=== PATIENT | female | born 1955 | race Two or more races ===

== ENCOUNTER 2016-04-14 13:40 | Emergency (ER) | payer MEDICARE, OTHER ==
[2016-04-14 13:51] VITALS: TEMP 98.8; BMI 29.3
[2016-04-14] MEDS ORDERED: MAGNESIUM SULF 50% (8.12 MEQ/2 ML-1 GM VIAL) IVPB ONE (14:05)
[2016-04-14] MEDS ORDERED: ACETAMINOPHEN 1000 MG/100 ML VIAL (NON FORMULARY) IVPB ONE (14:05)
[2016-04-14] MEDS ORDERED: METOCLOPRAMIDE HCL INJECTION 10 MG/2 ML VIAL IVPB ONE (14:05)
[2016-04-14] MEDS ORDERED: ACETAMINOPHEN INJECTION 100 ML IVPB ONE (14:20)
[2016-04-14 14:23] LABS: BASOPHIL 0.6 % (0-2.0); EOSINOPHIL 1.2 % (0-4.5); MCH 29.1 pg (25.7-33.7); MCHC 33.4 g/dl (32.0-36.0); MEAN CELL VOLUME 87.4 fl (80-96); MEAN PLT VOLUME 7.7 fl (7.5-11.1); NEUTROPHILS 61.2 % (42.8-82.8); PLATELET COUNT 294 K/MM3 (134-434); RDW 13.5 % (11.6-15.6); WHITE BLOOD COUNT 5.4 K/mm3 (4.0-10.0)
[2016-04-14 14:44] LABS: ALBUMIN 4.5 g/dl (3.5-5.0); ALK PHOS 81 U/L (32-92); ANION GAP 9 (8-16); BILIRUBIN,TOTAL 0.5 mg/dl (0.2-1.0); CALCIUM 10.1 mg/dl (8.4-10.2); CO2 31 mmol/L (22-28); CREATININE 0.7 mg/dl (0.6-1.3); GLUCOSE,RANDOM 133 mg/dl (74-106); SGOT/AST 27 U/L (10-42); SGPT/ALT 18 U/L (10-40); TOT PROT 7.4 g/dl (6.4-8.3)
--- NOTE | 2016-04-14 15:40 | PDOC ---
History of Present Illness - General Chief Complaint: CVA/TIA Stated Complaint: HEADACHE, NECK, RT SHOULDER PAIN, RT FACE TINGLING Time Seen by Provider: 04/14/16 13:44 History Source: Patient Exam Limitations: No Limitations - History of Present Illness Initial Comments: 04/14/16 14:41 This is a 60 yo F with a history of HTN, chronic headaches (since head trauma) who presents to the ER with a complaint of persistent right sided headache, facial numbness. Patient states she noted a gradual onset of right sided headache 2 weeks ago which she describes as "burning" She feels like something is "pouring" in her brain States pain is 9/10 Symptoms improve when she takes Topomax but then returns She was seen by her pmd last week to asked her to come in to the ER Pt did not come at that time PT states she has note tingling of her tongue and numbness of the lateral side of her tongue No speech difficulties No visual changes No weakness in the extremities No nausea or vomiting Pt notes bilateral tinnitus at all times for several days She has also noted right forehead swelling No trauma, No falls In addition to the parietal headache, pt has right neck pain which feels like tightness Pt has not seen a Neurologist for her history of intense headaches She is followed by her PMD PMH: HTN, Chronic headache PSH: myomectomy Meds: Topomax, Mobic, Lisinopril-HCTZ ALL: NKDA Social: Denies alcohol, drug, cigarettes GENERAL/CONSTITUTIONAL: No: fever, chills, weakness, loss of appetite. HEAD, EYES, EARS, NOSE AND THROAT: No: change in vision, ear pain, discharge, sore throat, throat swelling. CARDIOVASCULAR: No: chest pain, lightheadedness, palpitations, syncope RESPIRATORY: No: cough, shortness of breath, wheezing, hemoptysis, stridor. GASTROINTESTINAL: No: nausea, vomiting, diarrhea, abdominal cramping, rectal bleeding, constipation. GENITOURINARY: No: dysuria, hematuria, frequency, urgency, flank pain. MUSCULOSKELETAL: No: back pain, neck pain, joint pain, muscle swelling or pain SKIN: No: lesions, pallor, rash or easy bruising. NEUROLOGIC: Yes: headache, paresthesias right face No: vertigo,weakness ENDOCRINE: No: unexplained weight gain or loss HEMATOLOGIC/LYMPHATIC: No: anemia, easy bleeding, swelling nodes. GENERAL: The patient is in no acute distress. HEAD: Normal with no signs of trauma. EYES: PERRLA, EOMI, sclera anicteric, conjunctiva clear. ENT: Ears normal, nares patent, oropharynx clear without exudates. Moist mucous membranes. NECK: Normal range of motion, supple without lymphadenopathy, JVD, or masses. LUNGS: Breath sounds equal, clear to auscultation bilaterally. No wheezes, and no crackles. HEART: Regular rate and rhythm, normal S1 and S2 without murmur, rub or gallop. ABDOMEN: Soft, nontender, normoactive bowel sounds. No guarding, no rebound. No masses palpable. EXTREMITIES: Normal range of motion, no edema. No clubbing or cyanosis. No erythema, or tenderness. NEUROLOGICAL: Cranial nerves II through XII grossly intact. Normal speech. Slowed rapid alternating movements Able to do finger to nose but states she gets double vision sensation intact motor strength 5/5 all extremities Pt shakes? when exerting herself Rhomberg negative MUSCULOSKELETAL: Back non-tender to palpation, no CVA tenderness SKIN: Warm, Dry, normal turgor, no rashes or lesions noted. Past History - Past Medical History Allergies/Adverse Reactions: Allergies Allergy/AdvReac Type Severity Reaction Status Date / Time No Known Allergies Allergy Verified 05/15/14 10:21 Home Medications: Ambulatory Orders Lisinopril/Hydrochlorothiazide [Lisinopril-Hctz 10-12.5 mg Tab] 1 each PO DAILY 05/15/14 Acetaminophen/Caffeine/Butalb [Fioricet -] 1 tab PO TID PRN #9 tablet MDD 3 05/26 Meloxicam [Mobic] 7.5 mg PO ASDIR 04/14/16 Methocarbamol [Robaxin -] 500 mg PO TID PRN #12 tablet 04/14/16 Topiramate [Topamax] 50 mg PO ASDIR 04/14/16 HTN: Yes Other medical history: HEAD INJURY FROM FALL 2013, HEADACHE, RT KNEE PAIN - Psycho/Social/Smoking Cessation Hx Anxiety: No Suicidal Ideation: No Smoking History: Never smoked Have you smoked in the past 12 months: No Information on smoking cessation initiated: No Hx Alcohol Use: No *Physical Exam - Vital Signs Last Vital Signs Temp Pulse Resp BP Pulse Ox 98.8 F 91 H 18 171/65 98 04/14/16 13:40 04/14/16 13:40 04/14/16 13:40 04/14/16 13:40 04/14/16 13:40 ED Treatment Course - LABORATORY CBC & Chemistry Diagram: 04/14/16 14:15 04/14/16 14:18 - ADDITIONAL ORDERS Additional order review: 04/14/16 14:15 RBC 4.71 MCV 87.4 MCHC 33.4 RDW 13.5 MPV 7.7 Neutrophils % 61.2 Lymphocytes % 30.2 Monocytes % 6.8 Eosinophils % 1.2 Basophils % 0.6 - RADIOLOGY Radiology Studies Ordered: Category Date Time Status HEAD CT WITHOUT CONTRAST [CT] Stat CT Scan 04/14/16 14:05 Completed - Medications Given in the ED: ED Medications Discontinued Medications Generic Name Dose Route Start Last Admin Trade Name Freq PRN Reason Stop Dose Admin Acetaminophen 1,000 mg 04/14/16 14:05 04/14/16 14:30 Ofirmev Injection - IVPB 04/14/16 14:06 1,000 mg ONCE ONE Administration Medical Decision Making - Medical Decision Making 04/14/16 15:40 Will do basic labs Head CT Will give medications for headache Will re assess Laboratory Tests 04/14/16 04/14/16 14:15 14:18 WBC 5.4 Hgb 13.7 Hct 41.1 Plt Count 294 Neutrophils % 61.2 Lymphocytes % 30.2 Sodium 137 Potassium 3.7 Chloride 97 L Carbon Dioxide 31 H BUN 15 Creatinine 0.7 Random Glucose 133 H upon re assessment Pt states she feels better She has not had tenderness over the carotid No anisocoria or ptosis Will discharge with follow up in Dr Ann's office and Neurology 04/14/16 16:[address] Moore No clinical reason to admit Pt will follow up as an outpatient Case reviewed with Neuro Follow up as an outpatient next available I discussed the physical exam findings, ancillary test results and final diagnoses with the patient. I answered all of the patient's questions. The patient was satisfied with the care received and felt comfortable with the discharge plan and treatment plan. The patient will call their primary care physician within 24 hours to arrange follow-up and will return to the Emergency Department with any new, persistent or worsening symptoms. *DC/Admit/Observation/Transfer Diagnosis at time of Disposition: Headache - Discharge Dispostion Disposition: HOME Condition at time of disposition: Stable Admit: No - Prescriptions Prescriptions: Acetaminophen/Caffeine/Butalb [Fioricet -] 1 tab PO TID PRN #9 tablet MDD 3 PRN Reason: Headache Methocarbamol [Robaxin -] 500 mg PO TID PRN #12 tablet PRN Reason: Muscle Spasms - Referrals Referrals: Jermaine Ann MD [Primary Care Provider] - Delaney Villalobos MD [Staff Physician] - - Patient Instructions Printed Discharge Instructions: DI for Headache Additional Instructions: Ms. Horan Thank you for coming to the ER today I have contacted your primary care physician You will need to return to the office to see him I have contacted the Neurologist, please make an appointment [facility] for next week Please continue taking the medications given to you by Dr. Ann for headache Return to the ER for persistent or intractable symptoms
[2016-04-14 17:09] VITALS: BP 137/70; PULSE 79
== END 2016-04-14 17:19 | disposition home or self-care (01) ==
LOC: FER 13:40
PROC: 3E033NZ Introduction of Analgesics, Hypnotics, Sedatives into Peripheral Vein, Percutaneous Approach (ICD-10-PCS; principal; 2016-04-14)
PROC: 3E033GC Introduction of Other Therapeutic Substance into Peripheral Vein, Percutaneous Approach (ICD-10-PCS; 2016-04-14)
DX: R51 Headache (principal); I10 Essential (primary) hypertension
CPT/HCPCS: 36415; 70450-TC; 80053; 85025; 96374; 96375; 99285-25

== ENCOUNTER 2016-11-27 15:15 | Emergency (ER) | payer MEDICARE, OTHER ==
--- NOTE | 2016-11-27 15:21 | PDOC ---
History of Present Illness <Marnie De La Cruz - Last Filed: 11/27/16 16:35> - General History Source: Patient Exam Limitations: No Limitations - History of Present Illness Initial Comments: 11/27/16 16:22 Patient is a 61 year old female with a significant past medical history of Diabetes, High Cholesterol, HTN, chronic headaches (since head trauma) who presents to the ED with complaints of diffuse abdominal pain beginning 2 weeks ago. Patient reports abdominal pain began two weeks prior suddenly. She reports abdominal pain was intermittent for the first 2 weeks but has become constant. Patient reports abdominal pain radiates to legs and back bilaterally. She reports rectal pain secondary to abdominal pain. Patient states she has a hemorrhoid, and has felt it. She reports the pain to feel like a burning pain that radiates from abdomen to back and legs bilaterally. She has reported episodes of urinary frequency. Patient reports headache secondary to abdominal pain. Denies hematuria, dysuria. Denies hematochezia, diarrhea, constipation. Denies chest pain, SOB. Denies nausea, fever. Allergies: None Social history: Surgical history: Ovarian fibroid surgery. PMD: Dr. mercado <Jaxon Justin - Last Filed: 11/27/16 18:35> - General Chief Complaint: Pain Stated Complaint: ABD, RECTAL PAIN, URINARY SX Time Seen by Provider: 11/27/16 15:20 Past History - Past Medical History HTN: Yes - Suicide/Smoking/Psychosocial Hx Smoking History: Never smoked Have you smoked in the past 12 months: No Hx Alcohol Use: No <Marnie De La Cruz - Last Filed: 11/27/16 16:35> <Jaxon Justin - Last Filed: 11/27/16 18:35> - Past Medical History Allergies/Adverse Reactions: Allergies Allergy/AdvReac Type Severity Reaction Status Date / Time No Known Allergies Allergy Verified 11/27/16 15:17 Home Medications: Ambulatory Orders Atorvastatin Ca [Lipitor] 10 mg PO HS 11/27/16 Glipizide 5 mg PO DAILY 11/27/16 Lisinopril mg PO DAILY 11/27/16 Meloxicam mg PO ASDIR 11/27/16 Review of Systems - Review of Systems Able to Perform ROS?: Yes Comments:: 11/27/16 16:23 GENERAL/CONSTITUTIONAL: No fever or chills. No weakness. HEAD, EYES, EARS, NOSE AND THROAT: No change in vision. No ear pain or discharge. No sore throat. GASTROINTESTINAL: No nausea, vomiting, diarrhea or constipation. GENITOURINARY: No dysuria, frequency, or change in urination. CARDIOVASCULAR: No chest pain or shortness of breath. RESPIRATORY: No cough, wheezing, or hemoptysis. MUSCULOSKELETAL: + Abdominal pain. + Back pain. + Rectal pain. No joint or muscle swelling. No neck. SKIN: No rash NEUROLOGIC: No headache, vertigo, loss of consciousness, or change in strength/ sensation. ENDOCRINE: No increased thirst. No abnormal weight change. HEMATOLOGIC/LYMPHATIC: No anemia, easy bleeding, or history of blood clots. ALLERGIC/IMMUNOLOGIC: No hives or skin allergy. All Other Systems: Reviewed and Negative <Jaxon Justin - Last Filed: 11/27/16 18:35> *Physical Exam - Vital Signs Last Vital Signs Temp Pulse Resp BP Pulse Ox 98.5 F 76 18 136/75 99 11/27/16 15:15 11/27/16 15:15 11/27/16 15:15 11/27/16 15:15 11/27/16 15:15 - Physical Exam Comments: 11/27/16 16:24 GENERAL: Awake, alert, and fully oriented, in no acute distress HEAD: No signs of trauma EYES: PERRLA, EOMI, sclera anicteric, conjunctiva clear ENT: Auricles normal inspection, hearing grossly normal, nares patent, oropharynx clear without exudates. Moist mucosa NECK: Normal ROM, supple, no lymphadenopathy, JVD, or masses LUNGS: Breath sounds equal, clear to auscultation bilaterally. No wheezes, and no crackles HEART: Regular rate and rhythm, normal S1 and S2, no murmurs, rubs or gallops ABDOMEN: Soft, nontender, normoactive bowel sounds. No guarding, no rebound. No masses RECTAL: + Small External non thrombosed hemorrhoid at 2 oclock position. EXTREMITIES: Normal range of motion, no edema. No clubbing or cyanosis. No cords, erythema, or tenderness NEUROLOGICAL: Cranial nerves II through XII grossly intact. Normal speech, normal gait SKIN: Warm, Dry, normal turgor, no rashes or lesions noted. 11/27/16 18:35 <Jaxon Justin - Last Filed: 11/27/16 18:35> ED Treatment Course - ADDITIONAL ORDERS Additional order review: Laboratory Results 11/27/16 16:05 Urine Color Yellow Urine Appearance Clear Urine pH 6.0 Ur Specific [place] 1.020 Urine Protein Negative Urine Glucose (UA) Negative Urine Ketones Negative Urine Blood Negative Urine Nitrite Negative Urine Bilirubin Negative Urine Urobilinogen 0.2 <Jaxon Justin - Last Filed: 11/27/16 18:35> *DC/Admit/Observation/Transfer - Discharge Dispostion Admit: No <Marnie De La Cruz - Last Filed: 11/27/16 16:35> - Attestations Scribe Attestion: 11/27/16 16:25 Documentation prepared by Jaxon Justin, acting as medical voucher clerk for Marnie De La Cruz MD. <Jaxon Justin - Last Filed: 11/27/16 18:35> Diagnosis at time of Disposition: Hemorrhoid Qualifiers: Hemorrhoid type: unspecified Qualified Code(s): K64.9 - Unspecified hemorrhoids - Discharge Dispostion Disposition: HOME Condition at time of disposition: Stable - Patient Instructions Printed Discharge Instructions: DI for Hemorrhoids Additional Instructions: USE PREPARATION H DIRECTED ON THE PACKAGE. TUCKS PADS (WITCH FABIOLA) FOR IRRITATION. SITZ BATH WITH EPSOM SALTS- SOAK TO HELP MAKE THE HEMORRHOID SMALLER.
[2016-11-27 15:36] VITALS: BP 136/75; PULSE 76; TEMP 98.5; BMI 29.0
[2016-11-27 16:17] LABS: URINE APPEARANCE Clear; URINE BILIRUBIN Negative (NEGATIVE); URINE BLOOD Negative (NEGATIVE); URINE GLUCOSE (UA) Negative (NEGATIVE); URINE KETONE Negative (NEGATIVE); URINE NITRITE Negative (NEGATIVE); URINE PROTEIN Negative (NEGATIVE); URINE UROBILINOGEN 0.2 (0.2-1.0)
[2016-11-27 16:20] LABS: URINE COLOR YELLOW
[2016-11-29 09:07] LABS: URINE LEUK ESTERASE NEGATIVE (NEGATIVE)
== END 2016-11-27 16:45 | disposition home or self-care (01) ==
LOC: FER 15:15
DX: K64.9 Unspecified hemorrhoids (principal)
CPT/HCPCS: 81003; 99283-25

== ENCOUNTER 2019-09-30 06:10 | Day surgery (SDC) | payer OTHER ==
[2019-09-26 17:39] VITALS: BMI 29.0
[2019-09-30 06:37] LABS: BASO % 0.4 % (0-2.0); EOS % 0.9 % (0-4.5); HEMATOCRIT 39.7 % (32.4-45.2); HEMOGLOBIN 13.2 GM/dL (10.7-15.3); LYMPH % 35.3 % (8-40); MCH 29.7 pg (25.7-33.7); MCHC 33.2 g/dl (32.0-36.0); MEAN CELL VOLUME 89.4 fl (80-96); MEAN PLT VOLUME 8.1 fl (7.5-11.1); MONO % 9.1 % (3.8-10.2); NEUT % 54.3 % (42.8-82.8); PLATELET COUNT 250 K/MM3 (134-434); RBC 4.45 M/mm3 (3.60-5.2); RDW 14.7 % (11.6-15.6); WHITE BLOOD COUNT 6.6 K/mm3 (4.0-10.0)
[2019-09-30 07:08] LABS: ALBUMIN 4.2 g/dl (3.4-5.0); BILIRUBIN,TOTAL 0.3 mg/dL (0.2-1); BLOOD UREA NITROGEN 22.9 mg/dL (7-18); CALCIUM 9.1 mg/dL (8.5-10.1); CREATININE 0.7 mg/dL (0.55-1.3); POTASSIUM 3.7 mmol/L (3.5-5.1); TOT PROT 7.6 g/dl (6.4-8.2)
[2019-09-30] MEDS ORDERED: SUCCINYLCHOLINE CHLORIDE 200 MG/10 ML SYRINGE ONE (07:08)
[2019-09-30] MEDS ORDERED: MIDAZOLAM HCL 2 MG/2 ML SINGLE DOSE VIAL ONE (07:08)
[2019-09-30] MEDS ORDERED: PROPOFOL 20 ML ONE ×2 (07:08)
[2019-09-30] MEDS ORDERED: ONDANSETRON 4 MG/2 ML VIAL IVPUSH PRN (07:33)
--- NOTE | 2019-09-30 07:41 | HP ---
Admitting History and Physical - Admission Chief Complaint: Vaginal bleeding History of Present Illness: 64 yo Para 3, with prior uterine embolization, c/o vaginal bleeding. She's pre op for D&C Hysteroscopy. History Source: Patient Limitations to Obtaining History: No Limitations - Past Medical History ...: No ...Para: 2 - Past Surgical History Additional Past Surgical History: Uterine embolization - Smoking History Smoking history: Never smoked Have you smoked in the past 12 months: No - Alcohol/Substance Use Hx Alcohol Use: No History of Substance Use: reports: None - Social History History of Recent Travel: No Home Medications - Allergies Allergies/Adverse Reactions: Allergies Allergy/AdvReac Type Severity Reaction Status Date / Time No Known Allergies Allergy Verified 09/30/19 06:50 - Home Medications Home Medications: Ambulatory Orders Atorvastatin Ca [Lipitor] 10 mg PO HS 11/27/16 Glipizide 2.5 mg PO DAILY 11/27/16 Lisinopril 5 mg PO DAILY 11/27/16 Meloxicam 15 mg PO PRN 11/27/16 Ascorbic Acid [Vitamin C] 1,000 mg PO DAILY 08/28/19 Aspirin [Aspirin EC] 81 mg PO DAILY 08/28/19 Calcium (Oyster Shell) [[place] 500Mg -] 1 tab PO DAILY 08/28/19 Multivitamin [Multiple Vitamins] 1 each PO DAILY 08/28/19 Family Medical History Family History: Unremarkable Review of Systems - Review of Systems Constitutional: reports: No Symptoms Eyes: reports: No Symptoms HENT: reports: No Symptoms Neck: reports: No Symptoms Cardiovascular: reports: No Symptoms Respiratory: reports: No Symptoms Gastrointestinal: reports: No Symptoms Genitourinary: reports: No Symptoms Breasts: reports: No Symptoms Reported Musculoskeletal: reports: No Symptoms Integumentary: reports: No Symptoms Neurological: reports: No Symptoms Endocrine: reports: No Symptoms Psychiatric: reports: No Symptoms Pain Intensity: 0 Physical Examination Vital Signs: Vital Signs Temperature 98.0 F 09/30/19 06:48 Pulse Rate 52 L 09/30/19 06:48 Respiratory Rate 09/30/19 06:48 Blood Pressure 120/65 09/30/19 06:48 O2 Sat by Pulse Oximetry (%) 100 09/30/19 06:48 Constitutional: Yes: No Distress Eyes: Yes: Conjunctiva Clear HENT: Yes: Atraumatic Neck: Yes: Supple Cardiovascular: Yes: Regular Rate and Rhythm Respiratory: Yes: Regular Gastrointestinal: Yes: Normal Bowel Sounds Renal/: Yes: Vaginal Bleeding Breast(s): Yes: WNL Musculoskeletal: Yes: WNL Extremities: Yes: WNL Neurological: Yes: Alert, Oriented ...Motor Strength: WNL Psychiatric: Yes: Alert, Oriented Labs: CBC, BMP 09/30/19 06:18 09/30/19 06:18 Problem List - Problems (1) Post-menopausal bleeding Problems reviewed: Yes Code(s): N95.0 - POSTMENOPAUSAL BLEEDING Assessment/Plan Post menopausal bleeding Pre op for D&C Hysteroscopy Consent signed Anesthesia to see patient
[2019-09-30] MEDS ORDERED: DEXAMETHASONE SOD PHOSPHATE 4 MG/1 ML VIAL ONE (08:01)
--- NOTE | 2019-09-30 08:37 | OP ---
Operative Note - Note: Operative Date: 09/30/19 Pre-Operative Diagnosis: Post Menopausal Bleeding Operation: D&C Hysteroscopy Post-Operative Diagnosis: Same as Pre-op Surgeon: Yuli Price Anesthesia: General Specimens Removed: Endometrial curetting Estimated Blood Loss (mls): 5 Operative Report Dictated: Yes
[2019-09-30 12:23] VITALS: BP 135/75; PULSE 56; TEMP 97.3
--- NOTE | 2019-10-01 14:23 | OP ---
DATE OF OPERATION: 09/30/2019 PREOPERATIVE DIAGNOSIS: Postmenopausal bleeding. POSTOPERATIVE DIAGNOSIS: Postmenopausal bleeding. PROCEDURE: Dilatation and curettage hysteroscopy. SURGEON: Yuli Price MD ANESTHESIA: General. COMPLICATIONS: None. ESTIMATED BLOOD LOSS: Less than 5 mL. DESCRIPTION OF PROCEDURE The patient was taken to the operating room where general anesthesia was administered. Patient was then placed in the lithotomy position. She was then prepped and draped in proper sterile fashion. A weighted speculum was placed in the vagina. The anterior lip of the cervix was grasped with a single-toothed tenaculum. Then the cervical os was sequentially dilated with Perea dilators and a 5-mm hysteroscope was then gently introduced into the uterine cavity. There was no polyp, no mass noted in the cavity. The hysteroscope was removed and sharp curettage was then performed. When finished the instruments were removed. The patient was taken out of the lithotomy position. She was taken to PACU in stable condition. PATHOLOGY: Endometrial currettings. Li RIVAS/[id number]
--- NOTE | 2019-10-01 18:03 | PATH ---
Surgical Pathology Report Patient Name: SANDY ASHBY [facility]. Rec. #: [id number] /Age/Gender: 1955 (Age: 64) / F Account: [id number] Location: [facility] SURGICAL Taken: 09/30/2019 Received: 09/30/2019 Reported: 10/01/2019 Physicians: Yuli Price M.D. Specimen(s) Received ENDOMETRIAL CURETTINGS Clinical History Postmenopausal bleeding Final Diagnosis ENDOMETRIAL CURETTINGS, DILATION AND CURETTAGE: FRAGMENTS OF BENIGN CERVICAL TISSUE AND SCANT CRUSHED STROMA ADMIXED WITH MUCUS AND BLOOD. NO DEFINITIVE ENDOMETRIAL GLANDS/TISSUE IDENTIFIED. Electronically Signed Teena Gray M.D. Gross Description Received in formalin labeled "endometrial curettings," is a 1.1 x 1.0 x 0.3 cm aggregate of kearns red soft tissue fragments. The formalin is filtered and the specimen is entirely submitted in one cassette. /09/30/2019 saudi/09/30/2019
== END 2019-09-30 12:10 | disposition home or self-care (01) ==
LOC: JASU-SURG 06:10
PROVIDERS: ATTEND Obstetrics & Gynecology
PROC: 0UDB7ZX Extraction of Endometrium, Via Natural or Artificial Opening, Diagnostic (ICD-10-PCS; principal; 2019-09-30 07:30)
PROC: 0UJD8ZZ Inspection of Uterus and Cervix, Via Natural or Artificial Opening Endoscopic (ICD-10-PCS; 2019-09-30 07:30)
DX: N95.0 Postmenopausal bleeding (principal)
CPT/HCPCS: 36415; 80053; 85025; 88305-TC; 94760

== ENCOUNTER 2021-08-21 07:56 | Emergency (ER) | payer OTHER ==
[2021-08-21 08:39] VITALS: BMI 30.7
[2021-08-21 09:09] LABS: HEMATOCRIT 40.8 % (32.4-45.2); HEMOGLOBIN 13.9 G/dL (10.7-15.3); MCH 30.1 pg (25.7-33.7); MEAN CELL VOLUME 88.4 fl (80-96); MEAN PLT VOLUME 7.4 fl (7.5-11.1); PLATELET COUNT 237.4 10^3/uL (134-434); RBC 4.62 10^6/uL (3.60-5.2); RDW 14.7 % (11.6-15.6); WHITE BLOOD COUNT 11.7 10^3/uL (4.0-10.8)
[2021-08-21 09:20] LABS: ALBUMIN 4.1 g/dl (3.4-5.0); BILIRUBIN,TOTAL 0.7 mg/dl (0.2-1); CALCIUM 9.5 mg/dl (8.5-10); CREATININE 0.5 mg/dl (0.55-1.3); TOT PROT 7.3 g/dl (6.4-8.2)
[2021-08-21 09:50] LABS: EPITHELIAL CELLS MODERATE /hpf
[2021-08-21] MEDS ORDERED: KETOROLAC TROMETHAMINE 30 MG/1 ML VIAL IVPUSH ONE (09:59)
[2021-08-21] MEDS ORDERED: KETOROLAC TROMETHAMINE 15 MG/ML VIAL ONE (10:04)
[2021-08-21 11:04] VITALS: TEMP 98.7
[2021-08-21 11:16] VITALS: BP 119/57; PULSE 81
== END 2021-08-21 11:27 | disposition home or self-care (01) ==
LOC: FER 07:56
PROC: 3E033GC Introduction of Other Therapeutic Substance into Peripheral Vein, Percutaneous Approach (ICD-10-PCS; principal; 2021-08-21)
DX: J02.8 Acute pharyngitis due to other specified organisms (principal); B34.9 Viral infection, unspecified
CPT/HCPCS: 36415; 71046-TC-FY; 80053; 81003; 81015; 83690; 85027; 99284-25; C9803-CS; U0003; U0005

== ENCOUNTER → 2022-02-08 | Day surgery (SDC) | payer OTHER | LOC: JRADUS 10:08 → JRADUS-SUR 10:08 → EDSTATUS 11:00 | PROVIDERS: ATTEND Obstetrics & Gynecology | DX: N85.00 Endometrial hyperplasia, unspecified (principal) | CPT/HCPCS: 76831 ==

== ENCOUNTER 2022-03-29 14:38 | Emergency (ER) | payer OTHER ==
[2022-03-29 15:08] VITALS: BP 139/62; PULSE 66; RESP 16; TEMP 98.9; BMI 29.9
[2022-03-29] MEDS ORDERED: ACETAMINOPHEN 325 MG TABLET (FP) PO ONE (15:35)
[2022-03-29] MEDS ORDERED: ACETAMINOPHEN 325 MG TABLET (FP) ONE (15:43)
[2022-03-29] MEDS ORDERED: LIDOCAINE 5% TOPICAL PATCH TP ONE (16:01)
[2022-03-29] MEDS ORDERED: LIDOCAINE 5% TOPICAL PATCH ONE (16:04)
[2022-03-29 16:41] LABS: HEMATOCRIT 41.6 % (32.4-45.2); MCH 30.4 pg (25.7-33.7); MCHC 33.6 g/dl (32.0-36.0); MEAN CELL VOLUME 90.4 fl (80-96); MEAN PLT VOLUME 7.4 fl (7.5-11.1); PLATELET COUNT 289.7 10^3/uL (134-434); RDW 14.4 % (11.6-15.6); WHITE BLOOD COUNT 6.9 10^3/uL (4.0-10.8)
[2022-03-29 16:56] LABS: ALBUMIN 4.2 g/dl (3.4-5.0); BILIRUBIN,TOTAL 0.9 mg/dl (0.2-1); CALCIUM 10.1 mg/dl (8.5-10); CREATININE 0.5 mg/dl (0.55-1.3); MAGNESIUM 2.2 mg/dL (1.8-2.4); TOT PROT 7.4 g/dl (6.4-8.2)
[2022-03-29 18:17] LABS: PLATELET ESTIMATE ADEQUATE
== END 2022-03-29 18:29 | disposition home or self-care (01) ==
LOC: FER 14:38
DX: R20.2 Paresthesia of skin (principal)
CPT/HCPCS: 36415; 70450-TC; 80053; 83735; 84484; 85027; 93005; 99285-25

== ENCOUNTER → 2022-05-15 | Day surgery (SDC) | payer OTHER | END | disposition home or self-care (01) | LOC: JRADUS-SUR 11:49 | PROVIDERS: ATTEND Surgery Surgical Oncology | PROC: BH01ZZZ Plain Radiography of Left Breast (ICD-10-PCS; principal; 2022-05-15) | DX: D05.12 Intraductal carcinoma in situ of left breast (principal) | CPT/HCPCS: 19281; A4648; C9803-CS; U0003; U0005 ==

== ENCOUNTER 2022-05-17 04:24 | Day surgery (SDC) | payer OTHER ==
[2022-05-12 13:40] VITALS: BMI 30.3
[2022-05-17] MEDS ORDERED: BUPIVACAINE HCL/PF 0.5% (5MG/ML) 10 ML VIAL ONE (11:08)
[2022-05-17] MEDS ORDERED: ONDANSETRON 4 MG/2 ML VIAL ONE (11:55)
[2022-05-17] MEDS ORDERED: MIDAZOLAM HCL 2 MG/2 ML SINGLE DOSE VIAL ONE (11:55)
[2022-05-17] MEDS ORDERED: DEXAMETHASONE SOD PHOSPHATE 4 MG/1 ML VIAL ONE (11:55)
[2022-05-17] MEDS ORDERED: PROPOFOL 20 ML ONE (11:55)
[2022-05-17] MEDS ORDERED: KETOROLAC TROMETHAMINE 30 MG/1 ML VIAL ONE (11:55)
[2022-05-17] MEDS ORDERED: BUPIVACAINE HCL/PF 0.5% (5 MG/ML) 30 ML VIAL IJ ONE (12:45)
[2022-05-17] MEDS ORDERED: IBUPROFEN 600 MG TABLET (FP) PO PRN (13:31)
[2022-05-17] MEDS ORDERED: ACETAMINOPHEN 500 MG TABLET (FP) PO PRN (13:31)
[2022-05-17] MEDS ORDERED: oxyCODONE HCL 5 MG TABLET PO PRN (14:48)
[2022-05-17] MEDS ORDERED: ONDANSETRON 4 MG/2 ML VIAL IVPUSH PRN (14:48)
[2022-05-17] MEDS ORDERED: LACTATED RINGERS SOLUTION 1,000 ML IV SCH (15:00)
[2022-05-17 15:18] VITALS: RESP 18; TEMP 98
[2022-05-17 17:22] VITALS: BP 139/72; PULSE 77
== END 2022-05-17 16:40 | disposition home or self-care (01) ==
LOC: JASU-SURG 04:24
PROVIDERS: ATTEND Surgery Surgical Oncology
PROC: 0HBU0ZZ Excision of Left Breast, Open Approach (ICD-10-PCS; principal; 2022-05-17 12:00)
DX: D05.12 Intraductal carcinoma in situ of left breast (principal)
CPT/HCPCS: 76098-TC-FY; 82962; 88307-TC; 88342-TC; 94760

== ENCOUNTER 2022-05-21 15:20 | Emergency (ER) | payer OTHER ==
[2022-05-21 15:34] VITALS: BP 161/83; PULSE 85; RESP 18; TEMP 98.8; BMI 30.3
== END 2022-05-21 16:25 | disposition home or self-care (01) ==
LOC: FER 15:20
DX: T88.8XXA Other specified complications of surgical and medical care, not elsewhere classified, initial encounter (principal); Z48.01 Encounter for change or removal of surgical wound dressing
CPT/HCPCS: 99282-25